=== PATIENT | female | born 1965 | race Caucasian/White ===

== ENCOUNTER 2018-07-21 17:16 | Emergency (ER) | payer OTHER ==
[~2018-07-21] VITALS: Ht 167.6 cm; Wt 55.4 kg
[2018-07-21 17:18] VITALS: Ht 167.6 cm; Wt 55.4 kg
[2018-07-21] MEDS ORDERED: SOD CHLORIDE 0.9% 1,000 ML IV STA (18:44)
[2018-07-21] MEDS ORDERED: KETOROLAC 15 MG INJ IV STA (18:44)
[2018-07-21] MEDS ORDERED: ONDANSETRON 4 MG INJ IV STA (18:44)
[2018-07-21] MEDS ORDERED: POLY17PO6 PO (21:03)
[2018-07-21] MEDS ORDERED: IBUP-1561 PO (21:03)
[2018-07-21] MEDS ORDERED: CYCL10TA7 PO (21:14)
[2018-07-21 21:23] VITALS: BP 125/79; PULSE 89; RESP 18
--- NOTE | 2018-07-21 21:43 | ERD ---
ER Documentation Chief Complaint Chief Complaint LEFT SIDE ABD PAIN FOR 1 MONTH. NOW MORE CONSTANT. NAUSEA NO VOMITING. HPI 53-year-old female with no significant past medical history presenting to the emergency department complaining of diffuse abdominal pain but worse in the left lower quadrant for the past 1 month and significantly worsened today. Associated symptoms include nausea. She reports a stabbing pain which is rated 7/10 in severity and intermittent. She denies any vomiting, diarrhea, or other symptoms at this time. Last bowel movement was today and was reportedly normal. No other symptoms reported at this time. ROS All systems reviewed and are negative except as per history of present illness. Medications Home Meds Active Scripts Cyclobenzaprine Hcl* (Cyclobenzaprine Hcl*) 10 Mg Tablet, 10 MG PO TID, #15 TAB Prov:MOE COHN PA-C 07/21/18 Ibuprofen* (Motrin*) 400 Mg Tab, 400 MG PO Q6, #30 TAB Prov:MOE COHN PA-C 07/21/18 Polyethylene Glycol* (Miralax*) 17 Gm Powd.pack, 17 GM PO DAILY, #7 Prov:MOE COHN PA-C 07/21/18 Allergies Allergies: Coded Allergies: codeine (Verified Allergy, Unknown, itchy, 07/21/18) PMhx/Soc History of Surgery: Yes (partial hysterectomy) Anesthesia Reaction: No Hx Miscellaneous Medical Probl: Yes Hx Alcohol Use: No Hx Substance Use: Yes (meth 1x) Hx Tobacco Use: Yes Smoking Status: Current every day smoker FmHx Family History: No diabetes Physical Exam Vitals Vital Signs Date Temp Pulse Resp B/P (MAP) Pulse Ox O2 O2 Flow FiO2 Time Delivery Rate 07/21/18 98.5 89 18 125/79 96 21:23 (94) 07/21/18 98.1 98 18 150/88 96 17:18 (108) Physical Exam Const: No acute distress Head: Atraumatic Eyes: Normal Conjunctiva ENT: Normal External Ears, Nose and Mouth. Neck: Full range of motion. No meningismus. Resp: Clear to auscultation bilaterally Cardio: Regular rate and rhythm, no murmurs Abd: Soft, diffuse tenderness palpation of the abdomen, no rebound tenderness or guarding, no McBurney's point tenderness, non distended. Normal bowel sounds. Skin: No petechiae or rashes Back: No midline or flank tenderness Ext: No cyanosis, or edema Neur: Awake and alert Psych: Normal Mood and Affect Result Diagram: 07/21/18190107/21/181901 Results 24 hrs Laboratory Tests Test 07/21/18 18:50 07/21/18 18:59 07/21/18 19:02 Urine Color YELLOW Urine Clarity SLIGHTLY CLOUDY Urine pH 6.0 Urine Specific [place] 1.024 Urine Ketones NEGATIVE mg/dL Urine Nitrite NEGATIVE mg/dL Urine Bilirubin NEGATIVE mg/dL Urine Urobilinogen 1+ mg/dL Urine Leukocyte Esterase TRACE Ernestina/ul Urine Microscopic RBC 5 /HPF Urine Microscopic WBC 3 /HPF Urine Squamous Epithelial Cells FEW /HPF Urine Bacteria FEW /HPF Urine Mucus FEW /HPF Urine Hemoglobin NEGATIVE mg/dL Urine Glucose NEGATIVE mg/dL Urine Total Protein NEGATIVE mg/dl POC Beta HCG, Qualitative NEGATIVE White Blood Count 9.9 10^3/ul Red Blood Count 4.91 10^6/ul Hemoglobin 14.2 g/dl Hematocrit 44.1 % Mean Corpuscular Volume 89.8 fl Mean Corpuscular Hemoglobin 28.9 pg Mean Corpuscular 32.2 g/dl Hemoglobin Concent Red Cell Distribution Width 14.0 % Platelet Count 210 10^3/UL Mean Platelet Volume 10.3 fl Immature Granulocytes % 0.200 % Neutrophils % 57.3 % Lymphocytes % 32.6 % Monocytes % 6.6 % Eosinophils % 2.7 % Basophils % 0.6 % Nucleated Red Blood Cells % 0.0 /100WBC Immature Granulocytes # 0.020 10^3/ul Neutrophils # 5.7 10^3/ul Lymphocytes # 3.2 10^3/ul Monocytes # 0.7 10^3/ul Eosinophils # 0.3 10^3/ul Basophils # 0.1 10^3/ul Nucleated Red Blood Cells # 0.0 10^3/ul Prothrombin Time 11.9 Sec Prothrombin Time Ratio 0.9 INR International 0.87 Normalized Ratio Activated Partial Thromboplast 27.8 Sec Time Sodium Level 144 mmol/L Potassium Level 4.0 mmol/L Chloride Level 111 mmol/L Carbon Dioxide Level 27 mmol/L Anion Gap 6 Blood Urea Nitrogen 19 mg/dl Creatinine 0.57 mg/dl Est Glomerular Filtrat > 60 mL/min Rate mL/min Glucose Level 91 mg/dl Calcium Level 8.9 mg/dl Total Bilirubin 0.2 mg/dl Direct Bilirubin 0.00 mg/dl Indirect Bilirubin 0.2 mg/dl Aspartate Amino Transf (AST/SGOT) 21 IU/L Alanine 14 IU/L Aminotransferase (ALT/SGPT) Alkaline Phosphatase 78 IU/L Total Protein 7.7 g/dl Albumin 4.1 g/dl Globulin 3.60 g/dl Albumin/Globulin Ratio 1.13 Lipase 62 U/L Current Medications Medications Dose Sig/Geovany Start Time Status Last (Trade) Ordered Route PRN Stop Time Admin Dose Reason Admin Sodium 1,000 ml @ Q1H STAT 07/21/18 DC 07/21/18 Chloride 1,000 mls/hr IV 18:44 07/21/18 19:14 19:43 Ondansetron 4 mg ONCE STAT 07/21/18 DC 07/21/18 HCl (Zofran IV 18:44 07/21/18 19:14 Inj) 18:46 Ketorolac 15 mg ONCE STAT 07/21/18 DC 07/21/18 Tromethamine IV 18:44 07/21/18 19:15 (Toradol) 18:46 [place] [id number] Radiology Main Line: [phone] DIAGNOSTIC IMAGING REPORT Patient: GALINA MONACO : 1965 Age: 53 Sex: F [id number] DOS: 07/21/18 1844 Ordering MD: OME COHN PA-C Location: [facility] Room/Bed: PROCEDURE: CT abdomen and pelvis without contrast. CLINICAL INDICATION: Abdominal pain. TECHNIQUE: CT scan of the abdomen and pelvis without contrast was performed on a multi-slice CT scanner . Sagittal and coronal reformatted images were obtained from the axial source images. One or more of the following dose reduction techniques were used: - Automated exposure control. - Adjustment of the mA and/or kV according to patient size. - Use of iterative reconstruction technique. DICOM images are available DLP 294.96 mGycm. CTDIvol 5.72 mGy COMPARISON: None FINDINGS: Fine detail of the soft tissues is limited secondary to the lack of IV contrast. Evaluation for enhancing lesions cannot be performed. Lower thorax:The lung bases are clear. Liver: There is borderline hepatomegaly of the liver with no gross focal lesion. Biliary: The gallbladder is unremarkable without surrounding inflammation. No biliary dilatation. Pancreas: Homogeneous density of the pancreas without visible focal lesion or cystic abnormality. There is no pancreatic ductal dilatation. Spleen: Unremarkable without enlargement or focal lesion. Adrenal Glands: The adrenal glands are within normal limits without mass. Urinary: The kidneys are symmetric in size bilaterally. There are no visible renal or ureteral stones. There is no hydronephrosis. Gastrointestinal: There is a diffusely moderate to prominently fecal filled colon.No evidence of bowel obstruction or inflammation. There is no appendicitis. There is diverticulosis without diverticulitis. Lymph nodes: There are no enlarged lymph nodes. Vascular: The aorta is unremarkable. Peritoneum/mesentery: No free fluid or free air. Reproductive organs: The uterus is not visualized. The adnexal structures are obscured with no gross evidence for pelvic mass. Musculoskeletal: Degenerative changes are seen in the lumbar spine with no acute osseous abnormality Other: None IMPRESSION: There is a diffusely moderate to prominently fecal filled colon suggestive for constipation. No evidence of bowel obstruction or inflammation. There is no appendicitis. There is diverticulosis without diverticulitis. Atherosclerotic disease is present. No renal or ureteral calculi with no evidence of hydronephrosis. RPTAT: AA .Basim Oliveros MD, Date Time Electronically viewed and signed by .Basim Oliveros MD, MD on 07/21/2018 20:48 .J/ CC: MOE COHN PA-C [id number] Procedures/MDM 53-year-old female resenting to the emergency department complaining of diffuse abdominal pain. History, physical examination, work-up most consistent with constipation. No evidence of acute surgical abdomen. CT abdomen and pelvis without contrast showed no significant acute abnormalities. Full report interpreted by the radiologist may be viewed above. Patient was administered IV morphine and was significantly improved on reevaluation. She remained hemodynamically stable throughout her ED course with no new complaints. CBC: no e/o of systemic infection or severe anemia CMP: no e/o severe acidosis, alkalosis, renal failure, diabetic ketoacidosis, liver disease Lipase: no e/o pancreatitis PT/INR: normal coagulation Urine: no e/o acute infection or hematuria Patient's gastrointestinal symptoms have stabilized while in the department. No evidence of severe dehydration, sepsis, or surgical abdomen. Extensive discussion with family and patient that occult disease cannot be ruled out. 8 hour recheck for repeat abdominal exam is planned. No evidence of life-threatening pathology at time of discharge. Pt/family in agreement with discharge plan/diagnosis. Pt/family advised to return immediatel y with any new or worsening symptoms. Follow-up with primary care physician within the next 1-2 days. Patient's blood pressure was elevated (>120/80) but appears stable without evidence of hypertension emergency or urgency. The patient is to follow-up and pursue outpatient monitoring and therapy with their primary care physician within 1 week and return immediately if they have any new, worsening, or concerning symptoms. Disclaimer: Inadvertent spelling and grammatical errors are likely due to EHR/dictation software use and do not reflect on the overall quality of patient care. Also, please note that the electronic time recorded on this note does not necessarily reflect the actual time of the patient encounter. Departure Diagnosis: Primary Impression: Abdominal pain Condition: Fair Patient Instructions: Abdominal Pain Additional Instructions: Call your primary care doctor TOMORROW for an appointment during the next 1-2 days.See the doctor sooner or return here if your condition worsens before your appointment time. MOE COHN PA-C Jul 21, 2018 21:43
== END 2018-07-21 21:24 | disposition home or self-care (01) ==
LOC: FTE 17:16
DX: R10.84 Generalized abdominal pain (principal); R11.0 Nausea; F17.210 Nicotine dependence, cigarettes, uncomplicated
CPT/HCPCS: 36415; 74176; 80053; 81001; 81025; 83690; 85025; 85610; 85730; 96361; 96374; 96375; J1885; J2405; J7030; Z7502

== ENCOUNTER 2018-09-15 13:41 | Emergency (ER) | payer SELFPAY ==
[~2018-09-15] VITALS: Ht 167.6 cm; Wt 55.0 kg
[~2018-09-15 13:41] MED LIST: CYCL10TA7 PO; IBUP-1561 PO; POLY17PO6 PO
[2018-09-15 13:48] VITALS: BP 128/83; PULSE 93; RESP 16; Ht 167.6 cm; Wt 55.0 kg
== END 2018-09-15 17:38 | disposition left against medical advice (07) ==
LOC: E/R 13:41
DX: Z53.21 Procedure and treatment not carried out due to patient leaving prior to being seen by health care provider (principal)
CPT/HCPCS: 93005